=== PATIENT | male | born 1975 | race African-American/Black ===

== ENCOUNTER 2024-01-20 11:27 | Emergency (ER) | payer BC, SELFPAY ==
--- NOTE | ~2024-01-20 | XR_ITS ---
Examination: XR cervical spine 3V, XR shoulder RT min 2V, XR thoracic spine 3V Indication: Pain Comparison: No pertinent prior studies are currently available for comparison. Technique: Frontal, lateral, odontoid, swimmers view of the cervical spine obtained with frontal and lateral views the thoracic sprain and 3 views of the right shoulder Findings: Cervical spine: No prevertebral soft tissue swelling. Bones are normal anatomic alignment with no acute fracture or dislocation. Mild degenerative changes with anterior osteophyte formation at C5/C6 and C6/C7. No acute bony abnormality. Visualized airway and lung apices unremarkable. Thoracic spine: Bones are normal anatomic alignment with no acute fracture or spondylolisthesis. Vertebral body heights and disc heights are preserved. Minimal anterior osteophyte formation seen. Paravertebral soft tissues and visualized ribs grossly unremarkable. Right shoulder: Humeral head is well-seated in the glenoid fossa. No acute fracture or dislocation. Visualized right chest and ribs unremarkable. XR/XR shoulder RT min 2V Impression: Mild degenerative changes but no acute fracture or dislocation seen.
--- NOTE | ~2024-01-20 | XR_ITS ---
Examination: XR cervical spine 3V, XR shoulder RT min 2V, XR thoracic spine 3V Indication: Pain Comparison: No pertinent prior studies are currently available for comparison. Technique: Frontal, lateral, odontoid, swimmers view of the cervical spine obtained with frontal and lateral views the thoracic sprain and 3 views of the right shoulder Findings: Cervical spine: No prevertebral soft tissue swelling. Bones are normal anatomic alignment with no acute fracture or dislocation. Mild degenerative changes with anterior osteophyte formation at C5/C6 and C6/C7. No acute bony abnormality. Visualized airway and lung apices unremarkable. Thoracic spine: Bones are normal anatomic alignment with no acute fracture or spondylolisthesis. Vertebral body heights and disc heights are preserved. Minimal anterior osteophyte formation seen. Paravertebral soft tissues and visualized ribs grossly unremarkable. Right shoulder: Humeral head is well-seated in the glenoid fossa. No acute fracture or dislocation. Visualized right chest and ribs unremarkable. XR/XR thoracic spine 3V Impression: Mild degenerative changes but no acute fracture or dislocation seen.
--- NOTE | ~2024-01-20 | XR_ITS ---
Examination: XR cervical spine 3V, XR shoulder RT min 2V, XR thoracic spine 3V Indication: Pain Comparison: No pertinent prior studies are currently available for comparison. Technique: Frontal, lateral, odontoid, swimmers view of the cervical spine obtained with frontal and lateral views the thoracic sprain and 3 views of the right shoulder Findings: Cervical spine: No prevertebral soft tissue swelling. Bones are normal anatomic alignment with no acute fracture or dislocation. Mild degenerative changes with anterior osteophyte formation at C5/C6 and C6/C7. No acute bony abnormality. Visualized airway and lung apices unremarkable. Thoracic spine: Bones are normal anatomic alignment with no acute fracture or spondylolisthesis. Vertebral body heights and disc heights are preserved. Minimal anterior osteophyte formation seen. Paravertebral soft tissues and visualized ribs grossly unremarkable. Right shoulder: Humeral head is well-seated in the glenoid fossa. No acute fracture or dislocation. Visualized right chest and ribs unremarkable. XR/XR cervical spine 3V Impression: Mild degenerative changes but no acute fracture or dislocation seen.
[2024-01-20 11:30] VITALS: BP 146/80; PULSE 87; RESP 18; TEMP 36.8; O2SAT 98; BMI 28.0
--- NOTE | 2024-01-20 12:13 | ED_ITS ---
HPI - General Adult General Chief complaint: General Medical Stated complaint: shoulder back pain Time Seen by Provider: 01/20/24 11:38 Source: patient Mode of arrival: ambulatory Limitations: no limitations History of Present Illness ED Provider: Bill Gage PA-C HPI narrative: 48-year-old male with past medical history diabetes presents to ED for right shoulder pain and right upper back pain radiating down the right arm with some tingling. Patient denies any weakness of extremity, recent trauma, redness, swelling, bluish black discoloration, fever, or chills. patient believes he slept wrong. Patient states no chest pain, shortness of breath, abdominal pain, flank pain, fever, chills, headache, dizziness, loss of consciousness or altered mental status. Related Data Previous Rx's ?Medication ?Instructions ?Recorded ketorolac 10 mg tablet 10 mg PO QID PRN pain 5 days #20 01/20/24 tabs prednisone 20 mg tablet 40 mg (2 x 20 mg) PO DAILY 5 days 01/20/24 #10 tabs Allergies Allergy/AdvReac Type Severity Reaction Status Date / Time No Known Allergies Allergy Verified 01/20/24 11:32 [No Known Allergies*] Review of Systems 2 Review of Systems: right shoulder pain, upper back pain, Yes all other systems are reviewed and are negative PMFSH Social History Social History Advance Directives: No Advance Directives Information Provided: No Do you have a plan to hurt others: No Plan Physical Exam ED Vital Signs: Vital Signs - 24 hr 01/20/24 11:30 01/20/24 14:23 01/20/24 14:25 Temperature 98.3 F 98 F 98 F Pulse Rate 87 84 84 Respiratory Rate 18 16 16 Blood Pressure 146/80 H 151/84 H 151/84 H Pulse Oximetry 98 96 96 Oxygen Delivery Method Room Air Room Air Room Air BMI result Body Mass Index 28.0 Const General: cooperative, healthy appearing, comfortable, no acute distress, well developed, alert, awake and Physically active Orientation/consciousness: patient oriented x3 HENMT Head: Yes normal to inspection, Yes No palpable skull fracture present, Yes normocephalic, Yes atraumatic and No abrasion Eyes General: appearance normal, both eyes and all related structures Neck Neck: Yes normal visual inspection, Yes full ROM, Yes no lymphadenopathy, Yes no meningeal signs, Yes trachea midline, Yes supple, No anterior neck swelling and No tender Chest Chest palpation & inspection: normal inspection of the chest and normal palpation of entire chest wall Resp Effort & Inspection: normal respiratory effort and able to speak in complete sentences Auscultation: clear to auscultation bilaterally Cardio Jugular venous distension: no JVD Heart sounds: S1 normal heart sound present and S2 normal heart sound present GI Inspection: Yes normal to inspection Palpation (GI): Soft to palpation, not firm, nontender, no guarding and not rigid General: No CVA tenderness and Yes no CVA tenderness Back/Spine/Pelvis Back: no CVA tenderness, No CVA tenderness and back tenderness (thoracic) Skin General skin exam: no rashes or lesions noted, elasticity normal and turgor normal Neuro General: patient oriented x3, gait normal, tone normal, moves all extremities, Normal light touch and pain sensation, no meningeal signs, no focal motor deficits, CN's II-XI intact bilaterally and normal sensation to monofilament Extrem General: Yes normal to inspection, Yes full ROM and Yes capillary refill normal Shoulder/upper arm images: 2 1. Positive for tenderness on palpation. Negative for ecchymosis, crepitus, deformity, stiffness, bluish discoloration, redness, or swelling. Rest of extremity normal. Motor/neuro/vascular exam intact Psych Appearance: grossly normal, well kempt and not disheveled Medications Administered Discontinued Medications Generic Name Dose Route Start Last Admin Trade Name Freq PRN Reason Stop Dose Admin Cyclobenzaprine HCl 10 mg 01/20/24 12:12 01/20/24 13:03 Cyclobenzaprine Hcl 10 Mg Tablet PO 01/20/24 12:13 10 mg ONCE ONE Administration Ketorolac Tromethamine 30 mg 01/20/24 12:10 01/20/24 13:04 Ketorolac Tromethamine 30 Mg/Ml Vial IM 01/20/24 12:11 30 mg ONCE ONE Administration Medical Decision Making Medical Decision Making MDM Narrative: 48 Yold male presents to ED right shoulder right back pain radiating down right arm without any trauma. Patient has ordered Toradol and muscle relaxant. Patient was sent for x-ray of upper back thoracic and right shoulder x-ray. Will also send for cervical spine x-ray. 2:07pm: patient thoracic spine x-ray came back normal. Right shoulder x-ray normal. Cervical spine x-ray shows cervical radiculopathy. Not suspecting carotid dissection. Not suspecting spinal cord compression. Not suspecting stroke. NIH score is 0. Not suspecting DVT rhabdomyolysis. Not suspecting arterial occlusion. Patient explained worrisome signs informed to follow up with primary care provider Differential Diagnosis Differential Diagnoses: The differential diagnosis associated with the presentation includes ( radiculopathy, fracture, dislocation, sprain) Admission/Observation Consideration of admission/observation: Escalation of care including admission/observation considered Lab Data MDM Lab Attestation statement: I reviewed the patient's lab results. Independent Historian Clinical information obtained from an independent historian. History obtained from or confirmed by: Other ( patient) External Record Review External record reviewed: Other ( prior visits) Prescription Management I considered prescription management with: Pain Medication Discharge Plan Discharge Clinical Impression: Cervical radiculopathy, Arthritis of shoulder Patient Disposition: Home, Self-Care Instructions: Osteoarthritis (ED), Cervical Radiculopathy (ED), Arthralgia (ED), Shoulder Pain (ED) Additional Instructions: recommend follow-up with your primary care provider. You may need physical therapy if pain does not improve. Return to the ED immediately for worsening pain, neck stiffness, headache, dizziness, photophobia, swelling redness of erythema, bluish discoloration, paralysis, tingling, fever, chills, severe neck pain,, or any other concerning symptoms. Do not take any other NSAIDS while taking Ketorolac Findings: Cervical spine: No prevertebral soft tissue swelling. Bones are normal anatomic alignment with no acute fracture or dislocation. Mild degenerative changes with anterior osteophyte formation at C5/C6 and C6/C7. No acute bony abnormality. Visualized airway and lung apices unremarkable. Thoracic spine: Bones are normal anatomic alignment with no acute fracture or spondylolisthesis. Vertebral body heights and disc heights are preserved. Minimal anterior osteophyte formation seen. Paravertebral soft tissues and visualized ribs grossly unremarkable. Right shoulder: Humeral head is well-seated in the glenoid fossa. No acute fracture or dislocation. Visualized right chest and ribs unremarkable. XR/XR cervical spine 3V Impression: Mild degenerative changes but no acute fracture or dislocation seen. Prescriptions: New prednisone 20 mg tablet 40 mg PO DAILY 5 Days Qty: 10 0RF ketorolac 10 mg tablet 10 mg PO QID PRN (Reason: pain) 5 Days Qty: 20 0RF Rx Instructions: Patient received 30 mg IM Toradol in the ED Interventions: ED Discharge Assessment Last Done: 01/20/24 14:25 Discharge Date/Time: 01/20/24 14:26 Print Language: Tamazight
[2024-01-20] MEDS: Cyclobenzaprine HCl 10 MG TABLET PO (13:03)
[2024-01-20] MEDS: Ketorolac Tromethamine 30 MG/ML VIAL IM (13:04)
[2024-01-20 14:23] VITALS: BP 151/84; PULSE 84; RESP 16; TEMP 36.6; O2SAT 96
[2024-01-20 14:25] VITALS: BP 151/84; PULSE 84; RESP 16; TEMP 36.6; O2SAT 96
== END 2024-01-20 14:26 | disposition home or self-care (01) ==
PROVIDERS: Emergency Provider Emergency Medicine
DX: M54.12 Radiculopathy, cervical region (principal); M19.011 Primary osteoarthritis, right shoulder; M25.511 Pain in right shoulder
CPT/HCPCS: 72040; 72072; 73030; 96372; 99284; J1885